=== PATIENT | male | born 1995 | race Caucasian/White ===

== ENCOUNTER 2017-02-15 11:31 | Emergency (ER) | payer OTHER ==
[2016-05-01 15:11] VITALS: BP 127/76
--- NOTE | 2017-02-15 12:54 | ED Physician Documentation ---
Ear Complaints - HISTORIAN Historian: patient - HPI Chief Complaint: Ear Complaints Additional Information: awoke this am w/brownish ear drainage on pillow - felt pop then unable to hear as usual. has had prev TM perforation years ago other ear-also had ear tubes as small child. has wax in rt ear also but can visualize the tm Timing: worse Location of Pain: L ear Severity: moderate Associated Symptoms: denies: fever, chills, sharp pain, dull pain - ROS CONST: no problems. denies: recent illness CVS/RESP: none. denies: chest pain, shortness of breath GI/: denies: nausea, vomiting MS/SKIN/LYMPH: none All Systems -: Yes - PAST HX Past History: ear tubes, frequent ear infections (as child only but has xs wax) . denies: recent ear infections Allergies/Adverse Reactions: Allergies Allergy/AdvReac Type Severity Reaction Status Date / Time No Known Allergies Allergy Verified 02/15/17 11:49 - SOCIAL HX Smoking History: greater than 1 pack/day Alcohol Use: occasionally Drug Use: none - FAMILY HX Family History: No - VITAL SIGNS Vital Signs: Vital Signs Temp Pulse Resp BP Pulse Ox 127/76 05/01/16 15:09 - REVIEWED ASSESSMENTS Nursing Assessment Reviewed: Yes Vitals Reviewed: Yes Procedures Progress: bilateral ear tx w/ cerumen irrigation-used h2o2 then warm water irrigation followed by betadine instillation Ear Complaint Physical Exam - EXAM General Appearance: mild distress Ear: auricle nml. No: test borer helper.canal nml (xs wax-tm occluded on lt. this is the ear w/the cc), mastoid tenderness, mastoid swelling Head/Neck: atraumatic, neck nml inspection. No: facial swelling, facial erythema Eye: eyes nml inspection Resp/CVS: chest non-tender, breath sounds nml, heart sounds nml, no resp. distress Abdomen: non-tender, no organomegaly Skin: nml color, no skin rash. No: pallor, cyanosis, skin rash Neuro/Psych: oriented x3, mood/affect nml Discharge Clincal Impression: Bilateral impacted cerumen Referrals: Tejinder Garland MD [Primary Care Provider] - 2 Days Condition: Good Disposition: 01 HOME, SELF-CARE Decision to Admit: NO Decision Time: 12:53
== END 2017-02-15 12:51 | disposition home or self-care (01) ==
LOC: ED 11:31
DX: H61.23 Impacted cerumen, bilateral (principal)
CPT/HCPCS: 99283

== ENCOUNTER 2017-11-04 12:40 | Emergency (ER) | payer OTHER ==
--- NOTE | 2017-11-04 13:40 | ED Physician Documentation ---
Low Back Pain - HISTORIAN Historian: patient - HPI Stated Complaint: Lower back pain Chief Complaint: Low Back Pain/ Injury Additional Information: pt has hx djd=-disc disease prev steroid epidural injections-had low back pain w /o radiation past 4 weeks acute exaberation has staken ibu 600tid w/o help. past 4-5 days has been falling w/o injury-'knees just give way noelle when getting up or down-but now when walking. History: history of chronic pain: Onset: days ago (4weeks) Duration: continues in ED Context: bending Other Injuries: other (none) Severity: mild, moderate Quality: burning, dull, similar- prior back pain Associated Symptoms: denies: fever, chills, sweating, constipation, incontinence , nausea, vomiting - ROS CONST: no problems CVS/RESP: none EYES/ENT: none MS/SKIN/LYMPH: none - PAST HX Past History: back pain Surgeries/Procedures: other (t and a ear tubes) Allergies/Adverse Reactions: Allergies Allergy/AdvReac Type Severity Reaction Status Date / Time No Known Allergies Allergy Verified 11/04/17 12:55 Home Medications: Ambulatory Orders Medication Instructions Recorded NK [NK] 11/04/17 - SOCIAL HX Smoking History: greater than 1 pack/day Alcohol Use: none Drug Use: none - FAMILY HX Family History: no significant history - VITAL SIGNS Vital Signs: Vital Signs Temp Pulse Resp BP Pulse Ox 97.8 F 85 18 123/74 98 11/04/17 12:45 11/04/17 12:45 11/04/17 12:45 11/04/17 12:45 11/04/17 12:45 - REVIEWED ASSESSMENTS Nursing Assessment Reviewed: Yes Vitals Reviewed: Yes Low Back Pain/Injury - Physical Exam General Appearance: mild distress EENT: eye inspection normal Neck: non-tender, painless ROM Resp/CVS: chest non-tender, breath sounds nml, heart sounds nml Abdomen: non-tender Back: No: vertebral point-tendernes (but tender low lumbar and sactoiliac areas and area rt sciatic nerve-no lperipheral neuropathy-vibratory sense DTR heel to knee to toe and normal palantar and great toe exam=ok) Neuro/Psych: oriented x3 Skin: warm/dry, normal color. No: cyanosis, diaphoresis, jaundice Extremities: non-tender, normal range of motion, no evidence of injury, no edema , tenderness Discharge Clincal Impression: ACUTE EXACERBATION LOW BACK PAIN, hx degenerative disc disease-lo back Referrals: Tejinder Garland MD [Primary Care Provider] - 2 Days Comments: to f/u soon w/pcp or neurologists soon if not better Condition: Fair Disposition: 01 HOME, SELF-CARE Decision to Admit: NO Decision Time: 13:45
[2017-11-04 13:42] VITALS: BP 120/68
== END 2017-11-04 13:40 | disposition home or self-care (01) ==
LOC: ED 12:40
DX: M54.5 Low back pain (principal); Z87.39 Personal history of other diseases of the musculoskeletal system and connective tissue
CPT/HCPCS: 99282

== ENCOUNTER 2017-11-07 11:05 | Emergency (ER) | payer OTHER ==
[2017-11-07 11:20] VITALS: BP 133/73
--- NOTE | 2017-11-07 11:47 | ED Physician Documentation ---
Low Back Pain - HISTORIAN Historian: patient - HPI Stated Complaint: Back pain Chief Complaint: Lower Extremity Problem Additional Information: Patient has had a history of degenerative disc disease. Had PT and exercises and steroid shots. The pain that started one week ago is different. No radiation fo the pain. Worse with laying and standing, bending over. Has been having some grabbing type pain, has a constant dull ache. Pain is worse with hip movement. Most comfortable in sitting position. Was seen in ED 2 days ago and was given prednisone and tramadol without relief. No precipitating factor noted. Onset: days ago (7 days ago) Duration: continues in ED Recent Injury: No Severity: moderate Associated Symptoms: denies: fever, chills Worsened By:: upright position Relieved By: remaining still, other - ROS CONST: no problems - PAST HX Past History: other (early onset of degenerative disc disease). denies: back injury, back pain Allergies/Adverse Reactions: Allergies Allergy/AdvReac Type Severity Reaction Status Date / Time No Known Allergies Allergy Verified 11/07/17 11:18 Home Medications: Ambulatory Orders Medication Instructions Recorded Cyclobenzaprine HCl 10 mg PO TID PRN #20 tablet 11/07/17 HYDROcodone /APAP 5/325 [Arp 1 each PO Q6 #20 tablet 11/07/17 5/325] - SOCIAL HX Smoking History: greater than 1 pack/day Alcohol Use: none Drug Use: marijuana - FAMILY HX Family History: no significant history - VITAL SIGNS Vital Signs: Vital Signs Temp Pulse Resp BP Pulse Ox 97.1 F L 61 17 133/73 98 11/07/17 11:12 11/07/17 11:12 11/07/17 11:12 11/07/17 11:12 11/07/17 11:12 Progress - Progress Progress: 12:44 Patient states simmons has improved from 02/25 to 12/26. Will give him a dose of cyclobenzapine 10mg ED Results Lab/Radiology - Radiology Radiology Impressions: Examination: Plain film lumbar spine History: LOW BACK PAIN X 1 WEEK, NO KNOWN INJURY (Hx) Findings: 3 views of the lumbar spine demonstrate normal height. No anterior compression. No soft tissue abnormalities. Impression: No acute osseous process. No vertebral body compression deformity. - Orders Orders: ED Orders Category Date Time Status LUMBAR SPINE XR 2 OR 3 VIEWS [L SPINE 2 OR 3 VIEWS] [ Exams 11/07/17 Taken RAD] Stat Ketorolac Tromethamine [Toradol] Med 11/07/17 11:55 Discontinued 60 mg IM NOW ONE Low Back Pain/Injury - Physical Exam General Appearance: alert, moderate distress EENT: ENT inspection normal Neck: non-tender, painless ROM, trachea midline Resp/CVS: chest non-tender, breath sounds nml, heart sounds nml, no resp. distress, lungs clear Back: muscle spasm (left lower lumbar area), other (tenderness to palpation over the perilumbar muscles bilaterally, decrease ROM in all planes secondary to pain. ). No: vertebral point-tendernes, CVA tenderness Neuro/Psych: oriented x3, motor nml, sensation nml, reflexes nml, mood/affect nml Skin: warm/dry, normal color Extremities: non-tender, normal range of motion, no evidence of injury Discharge Clincal Impression: Strain of muscle, fascia and tendon of lower back, sequela Referrals: Tejinder Garland MD [Primary Care Provider] - 2 Days Additional Instructions: Special Instructions: Try to do exercises as instructed. Start taking Ibuprofen 200mg tablets, (3-4 tablets) with food up to 3 times a day as needed; or Aleve 220mg, (2 tablets) with food twice a day as needed for pain. Take cyclobenzaprine as needed for muscle spasms. Use a warm compress to the lower back area. You can also try a sport cream to see if that will help. Take hydrocodone for breakthrough pain no relieved by the Ibuprofen or Aleve. If you continue to have problems and are not getting any better to follow-up with your primary care provider or return to the ED. Condition: Stable Disposition: 01 HOME, SELF-CARE Decision to Admit: NO Date of Decison to Admit: 11/07/17 Decision Time: 12:45
[2017-11-07] MEDS: KETOROLAC TROMETHAMINE 60 MG/2 ML VIAL IM ONE (12:00)
[2017-11-07] MEDS: CYCLOBENZAPRINE HCL 5 MG TABLET PO ONE (12:50)
--- NOTE | 2017-11-07 13:19 | Diagnostic Imaging Report ---
BRAEDEN RANGEL [facility] [address] [facility].[address] [address] Report Submission Date: Nov 07, 2017 12:31:01 PM [employer] Patient Study Name: LUCHO TODD Date: Nov 07, 2017 12:12:31 PM [employer] Modality Type: DX Gender: M Description: SPINE : 89 Institution: [facility] Physician: BRAEDEN RANGEL Examination: Plain film lumbar spine History: LOW BACK PAIN X 1 WEEK, NO KNOWN INJURY (Hx) Findings: 3 views of the lumbar spine demonstrate normal height. No anterior compression. No soft tissue abnormalities. Impression: No acute osseous process. No vertebral body compression deformity. Electronically signed on Nov 07, 2017 12:31:01 PM CLASS A TRUCK DRIVER by: Klever MCGINNIS
== END 2017-11-07 13:00 | disposition home or self-care (01) ==
LOC: ED 11:05
DX: S39.012S Strain of muscle, fascia and tendon of lower back, sequela (principal); X58.XXXS Exposure to other specified factors, sequela
CPT/HCPCS: 72100; J1885; 96372; 99283

== ENCOUNTER 2018-02-20 16:19 | Emergency (ER) | payer OTHER ==
[2018-02-20 16:30] VITALS: BP 129/85
--- NOTE | 2018-02-20 16:38 | ED Physician Documentation ---
Lower Extremity Injury - HISTORIAN Historian: patient - HPI Stated Complaint: R leg pain Chief Complaint: Lower Extremity Injury Additional Information: 22yo white male who injured his right knee/leg at about 6 AM, who while using a pallet rider got his right leg pinned between it and a steel pole. Patient has been doing light duty for the rest of day. Had numbness to the mid thigh to the mid calf area immediatly afterwards. Feeling has returned to normal. Is stilling having some pain with weight bearing or moving foot side to side with knee stationary. Has been having some swelling to the knee and leg. No previous injury noted. Onset: hours (0660 today) Where: work Severity: moderate Context: direct blow Associated Symptoms:: tingling, numbness distally, swelling Modifying Factors:: pain on movement - ROS CONST: no problems - PAST HX Past History: none Immunizations: referred to PCP Allergies/Adverse Reactions: Allergies Allergy/AdvReac Type Severity Reaction Status Date / Time No Known Allergies Allergy Verified 02/20/18 16:29 Home Medications: Ambulatory Orders Medication Instructions Recorded NK [NK] 02/20/18 - SOCIAL HX Smoking History: greater than 1 pack/day Alcohol Use: occasionally Drug Use: marijuana - FAMILY HX Family History: none - VITAL SIGNS Vital Signs: Vital Signs Temp Pulse Resp BP Pulse Ox 97.9 F 63 17 129/85 97 02/20/18 16:27 02/20/18 16:27 02/20/18 16:27 02/20/18 16:27 02/20/18 16:27 - REVIEWED ASSESSMENTS Nursing Assessment Reviewed: Yes Vitals Reviewed: Yes ED Results Lab/Radiology - Radiology Radiology Impressions: Right femur History: Crush injury AP and frog leg lateral projections of the right femur demonstrate no osseous abnormality. Mineralization is normal. Impression: No osseous abnormality. - Orders Orders: ED Orders Category Date Time Status RT FEMUR 2 VIEWS [RAD] Routine Exams 02/20/18 Taken TIBIA & FIBULA 2 VIEW [RAD] Stat Exams 02/20/18 Taken Ketorolac Tromethamine [Toradol] Med 02/20/18 16:42 Discontinued 60 mg IM NOW ONE Lower Extremities Injury Phy - Physical Exam General Appearance: alert, mild distress Hips: bilateral hip: non-tender, normal inspection, normal range of motion, no evidence of injury Legs: right: abrasions (mild distal thigh), ecchymosis (distal lateral thigh), limited range of motion, pain, soft tissue tenderness, swelling (mild), left: non-tender, normal inspection, normal range of motion, no evidence of injury Knees: right: joint effusion (mild), pain (over anterior lateral aspect), soft tissue tenderness, left: non-tender, normal inspection, normal range of motion, no evidence of injury, N/A: deformity (none), ecchymosis (none) Ankle: bilateral: non-tender, normal inspection, normal range of motion, no evidence of injury Foot: bilateral foot: non-tender, normal inspection, normal range of motion, no evidence of injury Gait: limited by pain Neuro/Vascular/Tendon: no vascular compromise, motor nml, sensation nml Neck/Back: other (tenderness over the right posterior lower rib cage. No bony abnl noted. No ecchymosis or swelling noted) Resp/CVS: breath sounds nml, heart sounds nml, no resp. distress, lungs clear, reg. rate & rhythm, other (no pain with breathing or coughing). No: chest non- tender Abdomen: non-tender, pelvis stable Discharge Clincal Impression: Crushing injury leg Referrals: Tejinder Garland MD [Primary Care Provider] - 2 Days Additional Instructions: Apply cool compress tot he area for the next 24 hours. Take Aleve 220mg tablets , 2 twices a day with food or Ibuprofen 200mg tabs, 3 every 6 hours with food. The pain will probably be worse tomorrow. Wear knee immobilizer for the next two day then start to wean yourself out of it. If you continue to have problems to see Dr Garland or return tot ED. Condition: Stable Disposition: 01 HOME, SELF-CARE Decision to Admit: NO Date of Decison to Admit: 02/20/18 Decision Time: 17:36
[2018-02-20] MEDS: KETOROLAC TROMETHAMINE 60 MG/2 ML VIAL IM ONE (16:48)
--- NOTE | 2018-02-20 17:51 | Diagnostic Imaging Report ---
BRAEDEN RANGEL [facility] [address] [facility].[address] [address] Report Submission Date: Feb 20, 2018 5:33:16 PM CDT Patient Study Name: LUCHO TODD Date: Feb 20, 2018 4:48:37 PM CDT Modality Type: DX Gender: M Description: LOWER EXTREMITY : 89 Institution: [facility] Physician: BRAEDEN RANGEL Right femur History: Crush injury AP and frog leg lateral projections of the right femur demonstrate no osseous abnormality. Mineralization is normal. Impression: No osseous abnormality. Electronically signed on Feb 20, 2018 5:33:16 PM CDT by: Yolie MCGINNIS
--- NOTE | 2018-02-20 17:53 | Diagnostic Imaging Report ---
BRAEDEN RANGEL [facility] [address] [facility] [address] [address] Report Submission Date: Feb 20, 2018 5:34:43 PM CDT Patient Study Name: LUCHO TODD Date: Feb 20, 2018 5:03:04 PM CDT Modality Type: DX Gender: M Description: LOWER EXTREMITY : 89 Institution: [facility] Physician: BRAEDEN RANGEL Right tibia and fibula History: Crush injury AP and lateral junctions of the right tibia and fibula demonstrate no osseous abnormality. There is no evidence for acute fracture or dislocation. No radiodense foreign bodies are seen. Impression: No osseous abnormality. Electronically signed on Feb 20, 2018 5:34:43 PM CDT by: Yolie MCGINNIS
== END 2018-02-20 17:50 | disposition home or self-care (01) ==
LOC: ED 16:19
DX: S87.81XA Crushing injury of right lower leg, initial encounter (principal); W23.0XXA Caught, crushed, jammed, or pinched between moving objects, initial encounter; Y93.9 Activity, unspecified; Y92.513 Shop (commercial) as the place of occurrence of the external cause; Y99.9 Unspecified external cause status; Z04.2 Encounter for examination and observation following work accident
CPT/HCPCS: 73552; 73590; J1885; 96372; 99284

== ENCOUNTER 2019-01-28 21:04 | Emergency (ER) | payer OTHER ==
[2019-01-28] MEDS ORDERED: LORazepam 2 MG/ML VIAL IV ONE (21:26)
[2019-01-28] MEDS ORDERED: ONDANSETRON HCL/PF 4 MG/ 2ML VIAL IVP ONE (21:27)
[2019-01-28 21:33] LABS: BASOPHILS % 0.7 % (0.0-1.5); EOSINOPHILS % 1.1 % (0.0-6.8); MEAN CORPUSCULAR HEMOGLOBIN 30.4 pg (28.0-34.0); NEUTROPHILS # 9.2 # k/uL (1.4-7.7)
[2019-01-28 21:34] LABS: MONOCYTES % 6.8 % (0.0-11.0)
--- NOTE | 2019-01-28 21:34 | ED Physician Documentation ---
General Adult - HISTORIAN Historian: patient - HPI Stated Complaint: swallowed a pen and he has been out of his normal meds Chief Complaint: General Adult Onset: hours (2) Timing: still present Severity: moderate Further Comments: yes (He is thrashing on the bed stating he swallowed a pen to make the alf give him his normal meds for seizures and bi polar. he states he has been out of his meds for over two weeks due to cost. He does report he has abdominal pain from swallowing the pen. The officer says is it was a small flexiable pen. He has had some vomiting and a seizure at the alf. No one can report the length. B/P was high per the machinist apprentice wood and from the nurse of the alf. HE states is abdomen hurts all over per his indication with this hand. He states he has some nausea.) - ROS CONST: no problems EYES/ENT: denies: problems with vision, sore throat, nasal drainage CVS/RESP: cough. denies: chest pain, shortness of breath GI/: vomiting, nausea. denies: problems urinating, diarrhea MS/SKIN/LYMPH: none NEURO/PSYCH: headache - PAST HX Past History: other (bi polar ) Immunizations: UTD Allergies/Adverse Reactions: Allergies Allergy/AdvReac Type Severity Reaction Status Date / Time ibuprofen Allergy Unknown Verified 01/28/19 21:51 Home Medications: Ambulatory Orders Medication Instructions Recorded [place] Carbonate [Lithobid] 600 mg PO TID 01/26/19 Sulfamethoxazole/Trimethoprim 1 each PO BID 01/28/19 [Bactrim Ds] - SOCIAL HX Smoking History: non-smoker Alcohol Use: none Drug Use: none - FAMILY HX Family History: No - VITAL SIGNS Vital Signs: Vital Signs Temp Pulse Resp BP Pulse Ox 126/67 01/26/19 16:36 - REVIEWED ASSESSMENTS Nursing Assessment Reviewed: Yes Vitals Reviewed: Yes Progress - Progress Progress: 2139: his anxiety has lessened. He is resting quietly in the bed still. Officer at bedside. DG 2155: Discussed current findings and next step. He is agreeable DG 2210: States nausea is not improved. He has no current vomiting DG 2250: asking to use the restroom. No current nausea DG 2310: he is asking to use bathroom and have a bowel movement and needs privacy so guard and nurse did step out of room with curtain drawn for privacy. He was easily able to move from bed to stool with no pain. DG 2315: he is noted to be leaving the bathroom via adjacent room and out the back door running without evidence or complaint of pain out the emergency exit of the ER. Officer is following pt . 911 is called DG 2335: pt returns to room accompanied by officers. He denies pain and removes his own IV - DG ED Results Lab/Radiology - Radiology Radiology Impressions: Portable chest History: Swallowed pen Findings: There is no evidence of radiopaque foreign body in the chest. Heart size and pulmonary vascularity are normal. The lungs are clear. Electronically signed on January 28, 2019 9:37:24 PM CDT by: Giancarlo Brizuela Single view abdomen History: Swallowed pen Findings: The bowel gas pattern is normal. There is no evidence of radiopaque foreign body. Electronically signed on January 28, 2019 9:52:49 PM CDT by: Giancarlo Brizuela CT brain noncontrast Date of study: 01/28/2019. CLINICAL HISTORY: PT HIT HEAD ON WALL, COMPLAINING OF PAIN ON HIS FOREHEAD TECHNIQUE: 5 mm contiguous axial images of the brain, noncontrast with sagittal and coronal multiplanar reconstructions. FINDINGS: There is no evidence of intracranial mass effect, hemorrhage, or acute infarct. The lateral ventricles are symmetrical and the 4th ventricle is midline without shift. No acute brain parenchymal changes or extra-axial fluid collections are identified. The posterior fossa contents are within normal limits. The calvarium is intact. The visualized sinuses and mastoid air cells are clear. IMPRESSION: No acute intracranial process. Electronically signed on January 28, 2019 10:40:04 PM CDT by: Jarocho Dhaliwal CT abdomen and pelvis without contrast Clinical history: Patient swallowed a pen. Technique: CT of the abdomen and pelvis is performed without oral or intravenous administration of contrast. Sagittal and coronal reconstructions were performed by the technologist. Findings: Visualized lung bases are clear. The liver and spleen demonstrate normal attenuation without focal defect. Gallbladder is normally distended. There is no pancreatic or adrenal abnormality. The kidneys are of normal size, shape and position. There is no retroperitoneal mass or significant adenopathy. Bladder is unremarkable. There is no free fluid in the pelvis or abdomen. There is no obvious filling defect in the gastrointestinal tract to suggest a swallowed foreign object. The appendix is visualized and is within normal limits. Impression: 1. Negative study. 2. No evidence swallowed foreign object. Electronically signed on January 28, 2019 11:59:37 PM CDT by: Jarocho Dhaliwal - Orders Orders: ED Orders Category Date Time Status IV Started NOW Care 01/28/19 21:06 Active ABD SERIES PA CHEST [RAD] Stat Exams 01/28/19 Ordered CHEST 1VIEW [RAD] Routine Exams 01/28/19 Stop Req ALCOHOL MEDICAL USE ONLY Stat Lab 01/28/19 Ordered CBC/PLATELET/DIFF Stat Lab 01/28/19 21:07 Ordered CMP Stat Lab 01/28/19 Ordered UA W/MICRO IF INDICATED Routine Lab 01/28/19 21:08 Ordered UDS [DRUG SCREEN URINE MEDICAL ONLY] Routine Lab 01/28/19 Ordered LORazepam [Ativan] Med 01/28/19 21:26 Stop Req 0.5 mg IV NOW ONE Ondansetron HCl/Pf [Zofran] Med 01/28/19 21:27 Once 4 mg IVP NOW ONE EKG WITH COMPARISON Stat Ther 01/28/19 Ordered General Adult Physical Exam - PHYSICAL EXAM GENERAL APPEARANCE: moderate distress EENT: eye inspection normal, ENT inspection normal, pharynx normal, no signs of dehydration, RAN NECK: normal inspection RESPIRATORY: no resp distress, chest non-tender, breath sounds normal CVS: heart sounds normal, equal pulses, no murmur, tachycardia ABDOMEN: soft, normal bowel sounds, no distension, non-tender (with palpation no tenderness but per report ) BACK: normal inspection, no CVA tenderness SKIN: warm/dry, normal color, other (abrasion on his mid forhead ) EXTREMITIES: non-tender, normal range of motion, no evidence of injury, no edema NEURO: oriented X3, CN's nml as tested Discharge Clincal Impression: Abdominal pain Qualifiers: Abdominal location: unspecified location Qualified Code(s): R10.9 - Unspecified abdominal pain Referrals: Tejinder Garland MD [Primary Care Provider] - 2 Days Comments: 1. Will return call for any abnormal findings 2. See PCP in am for any continued issues 3. Return to ER for any increasing concerns Condition: Stable Disposition: 01 HOME, SELF-CARE Decision to Admit: NO Date of Decison to Admit: 01/28/19 Decision Time: 23:38
[2019-01-28 21:45] LABS: eGFR (Non-African) > 60
[2019-01-28] MEDS ORDERED: 0.9 % SODIUM CHLORIDE 1,000 ML IV ONE (22:19)
[2019-01-28 22:22] LABS: APPEARANCE,URINE CLEAR (CLEAR); COLOR,URINE YELLOW (YELLOW); OCCULT BLOOD,URINE NEGATIVE (NEGATIVE)
[2019-01-28 23:56] VITALS: BP 153/97
--- NOTE | 2019-01-29 06:30 | Diagnostic Imaging Report ---
NAT WRIGHT [facility] [address] [facility] [address] [place], [place]. [address] Report Submission Date: January 28, 2019 11:59:37 PM CDT Patient Study Name: LUCHO TODD Date: January 28, 2019 10:00:26 PM CDT Modality Type: CT\SR Gender: M Description: CT ABD PELVIS W/O CO : 89 Institution: [facility] Physician: NAT WRIGHT CT abdomen and pelvis without contrast Clinical history: Patient swallowed a pen. Technique: CT of the abdomen and pelvis is performed without oral or intravenous administration of contrast. Sagittal and coronal reconstructions were performed by the technologist. Findings: Visualized lung bases are clear. The liver and spleen demonstrate normal attenuation without focal defect. Gallbladder is normally distended. There is no pancreatic or adrenal abnormality. The kidneys are of normal size, shape and position. There is no retroperitoneal mass or significant adenopathy. Bladder is unremarkable. There is no free fluid in the pelvis or abdomen. There is no obvious filling defect in the gastrointestinal tract to suggest a swallowed foreign object. The appendix is visualized and is within normal limits. Impression: 1. Negative study. 2. No evidence swallowed foreign object. Electronically signed on January 28, 2019 11:59:37 PM CDT by: Jarocho MCGINNIS
--- NOTE | 2019-01-29 06:32 | Diagnostic Imaging Report ---
NAT WRIGHT [facility] [address] Formerly [facility], [facility] [address] [place], [place]. [address] Report Submission Date: January 28, 2019 10:40:04 PM CDT Patient Study Name: LUCHO TODD Date: January 28, 2019 9:55:28 PM CDT Modality Type: CT\SR Gender: M Description: CT BRAIN W/O CONTRAST : 89 Institution: [facility] Physician: NAT WRIGHT CT brain noncontrast Date of study: 01/28/2019. CLINICAL HISTORY: PT HIT HEAD ON WALL, COMPLAINING OF PAIN ON HIS FOREHEAD TECHNIQUE: 5 mm contiguous axial images of the brain, noncontrast with sagittal and coronal multiplanar reconstructions. FINDINGS: There is no evidence of intracranial mass effect, hemorrhage, or acute infarct. The lateral ventricles are symmetrical and the 4th ventricle is midline without shift. No acute brain parenchymal changes or extra-axial fluid collections are identified. The posterior fossa contents are within normal limits. The calvarium is intact. The visualized sinuses and mastoid air cells are clear. IMPRESSION: No acute intracranial process. Electronically signed on January 28, 2019 10:40:04 PM CDT by: Jarocho MCGINNIS
--- NOTE | 2019-01-29 10:34 | Diagnostic Imaging Report ---
NAT WRIGHT [facility] [address] [id number] Report Submission Date: January 28, 2019 9:52:49 PM CDT Patient Study Name: LUCHO TODD Date: January 28, 2019 9:04:00 PM CDT Modality Type: DX Gender: M Description: ABDOMEN 1VIEW : 89 Institution: [facility] Physician: NAT WRIGHT Single view abdomen History: Swallowed pen Findings: The bowel gas pattern is normal. There is no evidence of radiopaque foreign body. Electronically signed on January 28, 2019 9:52:49 PM CDT by: Giancarlo MCGINNIS
--- NOTE | 2019-01-29 10:34 | Diagnostic Imaging Report ---
NAT WRIGHT [facility] [address] [facility] [address] [address] [place], [place]. [address] Report Submission Date: January 28, 2019 9:37:24 PM CDT Patient Study Name: LUCHO TODD Date: January 28, 2019 9:04:14 PM CDT Modality Type: DX Gender: M Description: CHEST 1VIEW : 89 Institution: [facility] Physician: NAT WRIGHT Portable chest History: Swallowed pen Findings: There is no evidence of radiopaque foreign body in the chest. Heart size and pulmonary vascularity are normal. The lungs are clear. Electronically signed on January 28, 2019 9:37:24 PM CDT by: Giancarlo MCGINNIS
== END 2019-01-28 23:39 | disposition home or self-care (01) ==
LOC: ED 21:04
DX: R10.9 Unspecified abdominal pain (principal)
CPT/HCPCS: 36415; 70450; 71045; 74018; 74176; 80053; 80320; 81002; 85025; 93005; 96374; 99283; 99285; J2405; J7030; G0480; S1016